=== PATIENT | male | born 1950 | race Caucasian/White ===

== ENCOUNTER 2022-09-19 12:21 | Outpatient (AMB) | payer MEDICARE, SELFPAY ==
--- NOTE | 2022-09-19 13:13 | MHC.OFFWIV ---
Intake Vital Signs 09/19/22 13:15 BP 108/70 Blood Pressure Location Lt brachial Position Sitting Pulse 66 Pulse Source Pulse Oximeter Pulse Oximetry (%) 99 Oxygen Delivery Method Room Air Intake Visit Reasons: [employer]/right arm inj Intake Note: Patient here because he had a fall today and landed on his right arm, he has complaints of discomfort in shoulder and elbow & has small laceration on right side of face. Patient Tobacco Use Status: Never used Tobacco Allergies No Known Allergies Allergy (Verified 09/19/22 13:15) Do you need a note to return to daycare/school/sports/work: No HPI FL[employer]ER/right arm inj HPI Details Patient presents with pain in the right elbow and arm after a fall while doing yd work today he notes much of the force was taken in the elbow and has a small abrasion on right side of his face. Patient denies loss of consciousness or otherwise hitting his head. He is only in minimal pain but does have significant swelling along the right proximal ulna. Denies other injuries except as noted. [facility] Social History Patient Tobacco Use Status: Never used Tobacco Review of Systems Const Reports as per HPI and Reports no additional complaints Musc Reports no additional complaints and Reports as per HPI Skin/Breast Denies lesions Neuro Reports no additional complaints and Reports as per HPI Physical Exam Vital Signs: Last Vital Signs Pulse 66 09/19/22 13:15 BP 108/70 09/19/22 13:15 Pulse Ox 99 09/19/22 13:15 Oxygen Delivery Method Room Air 09/19/22 13:15 Const General: cooperative, comfortable and no acute distress Orientation/consciousness: patient oriented x3 Resp Effort & Inspection: normal respiratory effort Auscultation: clear to auscultation bilaterally Cardio Rate: regular rate Rhythm: regular rhythm Heart sounds: S1 normal heart sound present and S2 normal heart sound present Neuro General: patient oriented x3 Extrem Right upper extremity: elbow/forearm Details: tenderness (Olecranon and medial epicondyle), swelling (A fusion noted and proximal ulna/olecranon area) and distal pulses intact; ROM abnormal (Decreased range of motion of the elbow) Left upper extremity: normal to inspection Office Procedures Casting/Splints 73409-Vjgn arm splint application (Fiberglass splint cut and applied. Distal neurovascular status intact after splint application.) Procedure code (CPT) selection complete Results Reviewed Results Reviewed: X-ray contemporaneously read by me with noted displaced fracture of the proximal ulna question if humerus is involved. Will report radiolog results as available. y Assessment & Plan Assessment & Plan (1) Elbow fracture, right: Code(s): S42.401A - Unspecified fracture of lower end of right humerus, initial encounter for closed fracture Qualifiers: Encounter type: initial encounter Fracture type: closed Qualified Code(s): S42.401A - Unspecified fracture of lower end of right humerus, initial encounter for closed fracture Plan: Stat referral to orthopedics. Patient placed in fiberglass long-arm splint with sling. Advised to call him [facility] today as this is where they elect to go for near term appointment for further evaluation and treatment. Advised they may need referral from PCP office so they should call there is well. Can use NSAIDs as needed along with elevation and ice to help with pain and swelling. Orders: Orders XR elbow RT min 3V Today M25.521 - Pain in right elbow, M79.601 - Pain in right arm XR humerus RT Today M25.521 - Pain in right elbow, M79.601 - Pain in right arm Referrals Orthopedics Referral S42.401A - Unspecified fracture of lower end of right humerus, initial encounter for closed fracture Coding Level of Care Code New Pt Level 4 (55711) Diagnoses Elbow fracture, right S42.401A Encounter type: initial encounter Fracture type: closed CPT Codes Splint - CPT: 60252-Hfks arm splint application ([id number])
[2022-09-19 13:15] VITALS: BP 108/70; PULSE 66; O2SAT 99
== END 2022-09-19 14:05 | disposition home or self-care (01) ==
PROVIDERS: Visit Provider Physician Assistant
DX: S42.401A Unspecified fracture of lower end of right humerus, initial encounter for closed fracture (principal)
CPT/HCPCS: 99204

== ENCOUNTER 2022-09-19 13:32 | Outpatient (REF) | payer MEDICARE, SELFPAY ==
--- NOTE | ~2022-09-19 | XR_ITS ---
EXAMINATION: XR elbow RT min 3V, XR humerus RT CLINICAL INFORMATION: Pain COMPARISON: None. TECHNIQUE: 2 views of the right humerus. 3 views of the right elbow. FINDINGS: Right humerus: No fracture or cortical disruption. Appropriate alignment of the shoulder. The soft tissues are unremarkable. The visualized lung is clear. The visualized ribs are intact. Right elbow: There is a fracture of the olecranon. Proximal displacement of the fragment by 1.4 cm with mild angulation. No significant elbow joint effusion. The radiocapitellar joint appears appropriately aligned. XR/XR humerus RT IMPRESSION: 1. Displaced olecranon fracture. 2. No fracture or malalignment of the right humerus.
--- NOTE | ~2022-09-19 | XR_ITS ---
EXAMINATION: XR elbow RT min 3V, XR humerus RT CLINICAL INFORMATION: Pain COMPARISON: None. TECHNIQUE: 2 views of the right humerus. 3 views of the right elbow. FINDINGS: Right humerus: No fracture or cortical disruption. Appropriate alignment of the shoulder. The soft tissues are unremarkable. The visualized lung is clear. The visualized ribs are intact. Right elbow: There is a fracture of the olecranon. Proximal displacement of the fragment by 1.4 cm with mild angulation. No significant elbow joint effusion. The radiocapitellar joint appears appropriately aligned. XR/XR elbow RT min 3V IMPRESSION: 1. Displaced olecranon fracture. 2. No fracture or malalignment of the right humerus.
== END 2022-09-19 13:33 | disposition home or self-care (01) ==
LOC: HO.HMGCX 13:32
PROVIDERS: PCP Internal Medicine; Visit Provider Physician Assistant
DX: M79.601 Pain in right arm (principal); M25.521 Pain in right elbow
CPT/HCPCS: 73060; 73080